=== PATIENT | female | born 1990 | race Caucasian/White ===

== ENCOUNTER 2021-10-10 05:50 | Day surgery (SDC) | payer MEDICAID, SELFPAY ==
[2021-10-09 17:21] LABS: Hematocrit 40.6 % (37-47); Hemoglobin 13.5 g/dL (12.0-15.0); Mean Corp Hgb Conc 33.3 g/dL (32-36); Mean Corpuscular Hgb 29.9 pg (27.0-32.0); Mean Platelet Vol. 9.4 fl (6.2-12.0); Platelet Count 301 K/mm3 (150-450); RBC Distribution Width CV 12.9 % (11.6-14.6); RBC Distribution Width SD 42.5 fl (35.1-43.9); Red Blood Count 4.51 M/mm3 (4.2-5.4); White Blood Count 7.1 K/mm3 (4.4-11.0)
[2021-10-09 18:12] LABS: International Normalized Ratio 1.2; Prothrombin Time (Protime)PT. 15.2 SECONDS (11.7-14.9)
[2021-10-09 18:13] LABS: Partial Thromboplast Time 40.7 Seconds (24.1-36.2)
[2021-10-09 18:17] LABS: AST(SGOT) 18 U/L (15-37); Alanine Aminotransfer ALT/SGPT 22 U/L (13-56); Albumin, Serum 3.8 g/dL (3.2-5.0); Alkaline Phosphatase 54 U/L (45-117); Bilirubin, Direct 0.12 mg/dL (0.00-0.30); Globulin 3.2 g/dL (2.2-4.2)
[2021-10-10] VITALS (7 sets, daily range): BP systolic 93–117; BP diastolic 53–102; PULSE 50–80; RESP 16; TEMP 36.6–37.1; O2SAT 98–100; BMI 23.1
--- NOTE | 2021-10-10 | FALS_PTH ---
PATIENT: QI PALMER LOC: [facility] – [place], [place] U#:[id number] AGE/SX: 31/F ROOM: RE10/10/[address]: Dr. Yoselyn Gonzalez DO : 1990 BED: DIS: 10/10/2021 SPEC #: [id number] RECD: 10/10/21 11:49 STATUS: CHRIS BRYSON #: [id number] JULIANA: 10/10/21 00:[address]: Yoselyn Gonzalez DEPT: SURGICAL PATHOLOGY RECD BY: Warren Galeas ENTERED: 10/10/21 11:49 SP TYPE: FALL TUBES OTHR DR: Dr. Jose Hercules DO Tissues: Fallopian tube Procedures: Surgery Specimen Level II HEADER OPERATION: Laparoscopic salpingectomy, IUD removal PRE-OP DIAGNOSIS: Sterilization and IUD removal TISSUE SUBMITTED: Bilateral fallopian tubes MICROSCOPIC DIAGNOSIS Bilateral fallopian tubes, salpingectomy: Bilateral fallopian tubes, no pathologic diagnosis. SJ:stefanie 10/13/2021 MICROSCOPIC DESCRIPTION Slides are reviewed. GROSS DESCRIPTION Received in fixative is one container labeled with the patient's name and designated bilateral fallopian tubes. The specimen consists of two fallopian tubes with an average length of 7.7 cm and has an average diameter of 0.6 cm. Both fallopian tubes have normal fimbriated ends. The fallopian tubes are not designated as right or left. No mass lesions are identified. Lung Splitter sections are submitted in two cassettes with one fallopian tube in each cassette. / AM:stefanie 10/10/2021 TC:4 CPT: 75383 x2
[2021-10-10 06:30] LABS: Internal QC Validated? YES +Cl - CLEAR BKGD; Pregnancy, Urine Negative Negative
[2021-10-10] MEDS: Lactated Ringers 1,000 ML 30 ML IV (06:46)
--- NOTE | 2021-10-10 07:37 | PCM.HP.BLA ---
History and Physical Date of Admission: 10/10/21 DATE OF SERVICE: September 15, 2021 ? PROBLEM: desires sterilization ? DIAGNOSIS: desires sterilization ? PAST SURGICAL HISTORY: PAST SURGICAL HISTORYExpand by Default PAST SURGICAL HISTORY Procedure Laterality Date ? EXTRACTION ERUPTED TOOTH ? ? ? laughing gas ? HERNIA REPAIR HX ? ? ? REVISE MEDIAN N/CARPAL TUNNEL SURG ? PAST MEDICAL HISTORY: PAST MEDICAL HISTORYExpand by Default PAST MEDICAL HISTORY Diagnosis Date ? Encounter for insertion of mirena IUD 01/08/2016 ? POTS (postural orthostatic tachycardia syndrome) 07/08/2018 ? clinical Dx with Dr. Giang ? Varicella without mention of complication 2001 ? ? SUBJECTIVE: Has 2 children. She is 100% certain she does not desire more children in the future. She requests permanent sterilization. ? SOCIAL HISTORY: SOCIAL HISTORYExpand by Default Social History ? Tobacco Use ? Smoking status: Current Every Day Smoker ? ? Packs/day: 0.25 ? ? Types: Cigarettes ? ? Start date: 03/01/2007 ? Smokeless tobacco: Never Used ? Tobacco comment: 6 cigarettes per day Vaping Use ? Vaping Use: Former Substance Use Topics ? Alcohol use: No ? Drug use: No ? ? ALLERGIESExpand by Default ALLERGIES No Known Allergies ? Current Outpatient Medications on File Prior to Visit Medication Sig ? levonorgestrel (MIRENA) 20 mcg/24 hours (7 yrs) 52 mg IUD 1 Each by INTRAUTERINE route one time only. ? cholecalciferol (VITAMIN D3) 50 mcg (2,000 unit) tablet Take 1 tablet by mouth once daily. ? cyclobenzaprine (FLEXERIL) 10 mg tablet Take 1/2 to 1 tablet twice daily as needed for jaw pain. ? ibuprofen (MOTRIN) 600 mg tablet Take 1 tablet by mouth every 6 hours as needed for Pain. ? Current Facility-Administered Medications on File Prior to Visit Medication ? perflutren lipid microspheres 1.3 mL in NaCl (PF) 0.9% 10 mL injection (DEFINITY) ? sodium chloride 0.9 % (flush) 10 mL (BD POSIFLUSH) ? OBJECTIVE: ? VITALS: BP 104/62 Pulse 80 Resp 16 Ht 5' 5 (1.651 m) Wt 137 lb 9.6 oz (62.4 kg) LMP 02/26/2018 (Exact Date) BMI 22.90 kg/m? ? HEENT: Normocephalic, atraumatic, Mucus membranes moist without lesions. ? NECK: Soft and Supple. No adenopathy , thyromegaly or bruits. ? SKIN: No lesions. ? CHEST: Clear to auscultation. No wheezes or rales. Good air exchange. ? HEART: Regular rate and rhythm No S3 or S4. No gallops or rubs. ? BACK: Nontender with no CVA tenderness. ? ABDOMEN: Soft, non-tender, non-distended, no masses, no hepatosplenomegaly. ? LOWER EXTREMITIES: There was no pitting edema, no palpable cords and no skin changes. ? ASSESSMENT: Request for sterilization and IUD removal ? PLAN: 1) Discussed laparoscopic bilateral salpingectomy and IUD removal. She understands menses could become heavier once IUD is out. She understands sterilization is permanent and irreversible, and there is a risk of regret. The rationale for the proposed surgery was discussed in addition to risks, benefits, and alternatives. General pre- and post-operative care was reviewed. Questions were answered. After discussion, the patient indicated a desire to proceed with the planned surgery. ? Yoselyn Gonzalez, DO Assessment & Plan Assessment/Plan (1) Request for sterilization:
[2021-10-10] MEDS: Lubricating Jelly 60 GM Tube 30 GM (08:14)
[2021-10-10] MEDS: Bupivacaine Mpf 0.5% 30 ML VIAL (08:50)
--- NOTE | 2021-10-10 08:51 | PCM.DC ---
Discharge Instructions Diet Discharge Diet: No restrictions Activity Discharge Activity: May Drive (more than 24 hours after surgery and once you feel strong enough to slam on a car brake or turn a steering wheel sharply) May resume sexual activity in: 1 week Ice area for (Minutes): 15 Weight Bearing Status: Weight bearing as tolerated Lifting Restrictions: nothing greater than 10-15 pounds for first week Dressing / Incision Call your doctor if your incision/area has: Continuous Slow Oozing, Sudden Increased Bleeding, Increased Pain/ Swelling, Increased Redness, Foul Smelling Discharge and Swelling at the incision site Call your doctor if you observe: Fever of 101 or Higher, Coldness, Increased Pain, Numbness or Tingling, Change in Color, Inability to urinate, Inability to have a bowel movement, Using more than 1 pad per hour, Shortness of breath, Dizziness, Fainting spells, Swelling in the ankles, Chest pain, Increased palpitations (irregular heartbeat), Calf discomfort and Uncontrolled pain Remove Dressing in: leave until fall off (the glue will fall off - it is ok to peel off or cut as the edges come up) Cleanse incision/area with: Soap & Water Follow Up Care Please Follow Up With: Yoselyn Gonzalez DO When: 1 week Test Results: Test results from this visit will be discussed in further detail at your follow-up appointment, if applicable. Discharge Plan Admission Primary Reason for Your Visit: surgery Attending Provider: Yoselyn Gonzalez Primary Care Provider: Jose Hercules Instructions Patient Instructions: Laparoscopic Tubal Sterilization Discharge Orders/Prescriptions Prescriptions: New oxycodone-acetaminophen [Percocet] 5-325 mg tablet 1 tab PO Q6H PRN (Reason: pain) 7 Days Qty: 10 RF: 0 Continued naproxen 250 MG tablet 250 - 500 mg PO Q8H PRN PRN (Reason: Mild Pain (-07/17)) Qty: 30 RF: 0 cholecalciferol (vitamin D3) 50 mcg (2,000 unit) tablet 50 mcg PO DAILY RF: 0 Referrals / Follow Up: Jose Hercules DO [Primary Care Provider] - Disposition Disposition (needs filled in before D/C Order can be placed): Home, Self Care
--- NOTE | 2021-10-10 08:52 | OP.PCM_ITS ---
Problems Associated Problem List Diagnoses (1) Request for sterilization: Report of Operation Date of Procedure: 10/10/21 Pre-Operative Diagnosis: Request for sterilization, IUD removal Post-Operative Diagnosis: As above Surgery/Procedure Performed:: Laparoscopic bilateral salpingectomy, IUD removal Description of Surgical Findings:: Patient understands that sterilization is permanent and irreversible, and there is a risk of regret. She states she is 100% certain she desires sterilization, and does not desire in the future. Normal appearing uterus and bilateral adnexa. Normal-appearing pelvis. Surgeon: Yoselyn Gonzalez clinical reimbursement specialist: David SANDOVAL Type of Anesthesia: General Special Medications: None Specimen's removed: Bilateral fallopian tubes Drains: None Estimated Blood Loss (mL): < 50 cc Fluids Replaced: 1100 Description of Procedure: Patient was taken to the operating room where general anesthesia was induced. The patient was prepped and draped in the dorsal lithotomy position using yellowfin stirrups. From below a weighted speculum was placed to expose the cervix. The anterior lip of the cervix was grasped with a single-tooth tenaculum. Using a ring forcep the IUD strings were grasped, and with gentle traction the IUD was removed easily and intact without any force. A uterine manipulator was placed. Gloves were changed and attention was turned to the abdominal portion of the procedure. Local was infiltrated at all port sites. A 5 mm incision was made infraumbilically to accommodate a 5 mm port. The port was placed under direct visualization using the laparoscope. Once confirmed intraperitoneal, CO2 gas was started and the abdomen was insufflated. A right lateral 5 mm port was then placed. A left lateral 5 mm port was placed. The abdomen and pelvis were inspected. A normal-appearing uterus and bilateral adnexa were noted. The right fallopian tube was followed out to the fimbriated end. Using the LigaSure device the mesosalpinx was serially clamped, cauterized, and transected until the level of the cornua was reached. Once at the level of the cornua the fallopian tube was then transected. The right fallopian tube was removed and sent to pathology for review. The same was performed on the left side, after the left fallopian tube was followed out to the fimbriated end. The left fallopian tube was also removed and sent to pathology for review. Good hemostasis was noted. The incisions were closed with 4-0 Monocryl in a subcuticular fashion. Glue was placed over the inci sions. From below the uterine manipulator was removed. All instruments were removed from the vagina and a vaginal sweep was performed. Instrument, sponge, sharp counts were correct. The patient was taken to the recovery room in stable condition. The reading assistant was present for the entire procedure: Draping the patient, removal of the fallopian tubes, incision closure. Grafts/Implants Used: None Procedure Start Time: 08:16 Procedure Stop Time: 08:53 Complications None Admit VTE Documentation VTE Present on Admission: No VTE Mechan Device Prophylaxis: SCD's
== END 2021-10-10 10:45 | disposition home or self-care (01) ==
LOC: SDC 05:51 → AC 05:52
PROVIDERS: Anesthesiology; PCP Student in an Organized Health Care Education/Training Program; Referring Provider Obstetrics & Gynecology; Visit Provider Obstetrics & Gynecology
PROC: (CPT 58661; principal; 2021-10-10 07:15)
DX: Z30.2 Encounter for sterilization (principal); F17.210 Nicotine dependence, cigarettes, uncomplicated; Z30.432 Encounter for removal of intrauterine contraceptive device
CPT/HCPCS: 58661; 58301; 00840; 36415; 80076; 81025; 85027; 85610; 85730; 86850; 86900; 86901; 88302; J7120; J2405